=== PATIENT | female | born 1970 | race Caucasian/White ===

== ENCOUNTER 2023-06-30 15:03 | Emergency (ER) | payer BC, SELFPAY ==
[2023-06-30 15:05] VITALS: BP 171/97; PULSE 108; RESP 18; TEMP 36.6; O2SAT 99
--- NOTE | 2023-06-30 15:05 | ED.GENADUL_ITS ---
Discharge Plan Disposition Patient Disposition: Home Discharge Details Clinical Impression: Acute left flank pain, Ureterolithiasis Primary Care Provider: Effie Tubbs ED Provider: Adonay Smith Home Meds and New Rx's Prescriptions: New ondansetron 4 mg tablet,disintegrating 4 mg PO BID 5 Days Qty: 10 0RF Continued multivitamin [Daily Multi-Vitamin] Tablet 1 tab PO DAILY Discharge Instructions Additional Instructions: You are seen in the emergency department for your flank pain. You were found to have a tiny 1 to 2 mm kidney stone which was about to pass into your bladder. Please stay hydrated and return to the emergency department if you develop fevers worsening pain or cannot eat or drink as result of nausea or vomiting. A prescription for nausea medicine has been sent to your pharmacy. For your pain please take medications as follows: 1. Take acetaminophen (Tylenol), 1,000 mg (two 500 mg tabs) every 6 hours 2. Take ibuprofen (Advil), 400 mg every 6 hours. Discharge Data Discharge Date/Time-TO BE ENTERED AT DEPARTURE: 06/30/23 17:06 HPI General Date/Time Provider Initiated Documentation: 06/30/23 15:05 . HPI Narrative: MDM This is a mildly uncomfortable appearing tachycardic but normothermic 52-year-old female with left flank pain and family history of ureterolithiasis concerning for the possibility of ureterolithiasis. On limited bedside ultrasound she had no obvious hydronephrosis but given the rapidity of her pain along with her family appearance and her lack of hypotension my suspicion is high for ureterolithiasis. She does have elevated BMI but does not have a history of hypertension nor tobacco use so my suspicion is low for AAA. Not recently to suggest splenic arterial aneurysm. No diarrhea so doubt diverticulitis. No dysuria no frequency so doubt UTI. No rash to flank to suggest zoster. No pain out of proportion to suggest necrotizing soft tissue infection. Given no vomiting and no past surgical history my suspicion is low SBO. No shortness of breath nor hypoxia so doubt referred pain from pulmonary embolism. No cough to suggest pneumonia. No chest pain to suggest ACS will defer ECG. Given elevated BMI we will obtain a lipase along with comprehensive metabolic panel CBC urinalysis and dry CT abdomen pelvis. We will treat pain with 50 mg of ketorolac and nausea with 4 mg ondansetron. 351 p.m. Urinalysis showing proteinuria. Trace leukoesterase. Nitrite negative??not consistent with UTI. Microscopy showing moderate bacteriuria. No hematuria. Mild leukoesterase. Sample appears contaminated with many squames. 4 PM Comprehensive metabolic panel showing creatinine of 1.1. No prior for comparison. No acute electrolyte abnormalities. Very mild hyperglycemia but no anion gap. Normal bicarbonate??not consistent with DKA. Negative hCG. Normal reassuring lipase. 4:20 PM I reassessed the patient. She reported that her pain was nearly resolved. Her nausea was also improved. She confirmed again that she had no dysuria so I will defer treatment of her leukoesterase urine at this juncture. We will wait for CT read. 4:50 PM Patient has a tiny 1 to 2 mm ureteral lithiasis in the lower left most ureter at the UVJ. No other nephrolithiasis. Given the size of stone and lack of UTI we will proceed with empiric trial of expectant outpatient management with PCP follow-up. Based on stone size and location will certified personal finance counselor on acetaminophen and ibuprofen for analgesia. Tachycardia resolved in the ED. Chronic conditions affecting the care of the patient: Elevated BMI History obtained from an outside historian: N/A External record review: No [facility] [place] Medications: Ketorolac ondansetron Social determinants of health affecting disposition: N/A Management discussed with: [] Treatment/interventions considered: [] Response to therapies provided: [] HPI This is a 52-year-old previously healthy female arrived to the emergency department via private vehicle in the setting of left flank pain that began suddenly approximately 1 hour ago. Patient reports that her mother has ureterolithiasis but she has never had ureterolithiasis and has no known history of nephrolithiasis. She reports that she only urinated a small amount since coming to the emergency department. She denies dysuria and frequency. She was in her usual state of health earlier this morning and denies fevers cough chest pain shortness of breath and vomiting. She has not noticed any rash to her abdomen. She says that her pain is worse than childbirth. She reports that her left flank pain does not radiate. She is nauseous. She has not had any surgeries to her stomach although she does have an IUD. Exam General: Mildly uncomfortable-appearing in no acute distress speaking in complete sentences. Head: Normocephalic, atraumatic. Eye: Extraocular eye movements intact. No conjunctival injection. No scleral icterus. Ear, nose, mouth, throat: Grossly normal inspection. Normal voice, handling secretions normally. Neck: Trachea midline. Cardiovascular: Well-perfused distal extremities. Regular rate and rhythm Respiratory: Nonlabored respiration. Clear lungs bilaterally Gastrointestinal: Nondistended abdomen. Soft. Nontender. No rebound. No guarding. Back: Left CVA tenderness. No rash to back. Musculoskeletal: No edema. Moving all 4 extremities spontaneously. Skin: Normal for age and race, grossly normal temperature and turgor. No acute rash. Neurologic: Alert and appropriate, no apparent acute deficits. Psychiatric: Mood and manner are appropriate. Grooming and personal hygiene are appropriate. Related Data Home Medications Medication Instructions Recorded Confirmed multivitamin (Daily Multi-Vitamin 1 tab PO DAILY 06/30/23 06/30/23 tablet) ondansetron 4 mg disintegrating 4 mg PO BID 5 days #10 tabs 06/30/23 tablet Previous Rx's Medication Instructions Recorded ondansetron 4 mg disintegrating 4 mg PO BID 5 days #10 tabs 06/30/23 tablet Allergies Allergy/AdvReac Type Severity Reaction Status Date / Time ampicillin AdvReac Mild Other (See Unverified 06/30/23 15:45 Comment) PFSH All Active Problems (Updated 06/30/23 @ 20:20 by Adonay Smith MD) Ureterolithiasis (Acute) Acute left flank pain (Acute) Social History Smoking/Tobacco Use Status: Former Tobacco Use Smoking risk assessment performed?: Yes Substance use type: does not use Housing: house Do you feel safe at home: Yes Do you feel safe in your relationship?: Yes Additional Social history: quit smoking 26yrs ago POCUS Exam (ED) Limited Retroperitoneal(Renal)Exam DATE OF EXAM: 06/30/23 TIME OF EXAM: 15:34 PROVIDER THAT PERFORMED THE STUDY: Adonay Smith IS THIS A REPEAT EXAM DURING THIS ENCOUNTER: No REASON FOR EXAM: Flank pain/left side VISUALIZED STRUCTURES: Left kidney and Right kidney PERTINENT FINDINGS/IMPRESSION: Other impression: No obvious hydronephrosis bilaterally ; no hydronephrosis present INCIDENTAL FINDINGS: No obvious hydronephrosis bilaterally Exam complete
--- NOTE | 2023-06-30 15:15 | DI.CT_ITS ---
Exam(s) CT ABDOMEN PELVIS WO EXAM: CT ABDOMEN PELVIS WO CLINICAL HISTORY: Left flank pain. TECHNIQUE: Imaging Protocol: Axial computed tomography images with coronal and sagittal reformatted images were created and reviewed CONTRAST MATERIAL: Intravenous: none Oral: None COMPARISON: No exams were available for comparison FINDINGS: VISUALIZED LUNG BASES: No nodules nor pleural effusions evident. ABDOMEN: There is no ascites. LIVER: Liver is diffusely hypodense implying steatosis. There are no discrete focal hepatic lesions nor dilated intrahepatic ducts. GALLBLADDER/BILIARY: Gallbladder is contracted. No radiopaque calculi seen within the lumen. CBD is not dilated. PANCREAS: No evidence of pancreatic mass nor dilatation of the pancreatic duct. SPLEEN: Spleen is not enlarged. No obvious intrasplenic lesions. ADRENALS: There are no significant adrenal masses. KIDNEYS:Right kidney unremarkable. There is mild perinephric streaking on the left and mild dilatati on of the left collecting system including the left ureter. The culprit calculus is a tiny 1-2 sumaya meter calculus at the intramural aspect of the left ureterovesical junction. There are no other radi opaque calculi in the urinary bladder. No solid renal masses noted.. ABDOMINAL AORTA: Abdominal aorta is not enlarged. LYMPH NODES: There is no retroperitoneal nor paraaortic adenopathy. ABDOMINAL WALL: Fat containing umbilical midline hernia. No inguinal hernias evident. GI: There is no evidence of bowel obstruction, free air, nor abscess. PELVIS: LYMPH NODES: There is no intrapelvic nor inguinal adenopathy. GI: No evidence of appendicitis.Sigmoid diverticuli but no evidence of acute diverticulitis. URINARY BLADDER: Intramural tiny calculus left side UVJ REPRODUCTIVE: There is an IUD in the uterus. It is lying slightly lower than typical in the uterus b ut not extending into the cervical canal. There is suggestion of a possible subtle fibroid at the le zee the uterus which may be responsible for the position of the IUD. OSSEOUS: No fractures nor osseous lesions. Chronic advanced disc space narrowing at L4-5 level noted . Facet joints unremarkable. IMPRESSION: 1. The main acute finding here is a tiny 1-2 millimeter calculus in the lower most left ureter at the intramural aspect of the left UVJ. There is mild dilatation left collecting system above this level .. There are no remaining radiopaque calculi in either kidney. 2. IUD in the uterus noted. Suggestion of fundal fibroid 3. Hepatic steatosis. No discrete focal hepatic lesions. RADIATION DOSE DELIVERED: Total DLP DATA REPOSITORY: All CT scans at this facility are submitted to the National Radiology Data Registry (NRDR) Dose Index Registry (DIR) with the [employer] (A[employer]). RADIATION OPTIMIZATION: All CT scans at this facility use at least one of these dose optimization te chniques: automated exposure control; mA and/or kV adjustment per patient size (includes targeted exa ms where dose is matched to clinical indication); or iterative reconstruction.
[2023-06-30 15:31] VITALS: BP 150/86; PULSE 90; RESP 16; TEMP 37.3; O2SAT 98
[2023-06-30 15:33] VITALS: BP 150/86; PULSE 89
[2023-06-30 15:34] LABS: Bilirubin Negative (Negative); Blood Negative (Negative); Clarity Sl Cloudy (Clear); Glucose Negative (Negative); Ketones Negative (Negative); Leukocyte Esterase Trace (Negative); Nitrite Negative (Negative); Specific Gravity >= 1.030 (1.005-1.025); Urobilinogen 0.2 mg/dL (Up to 0.2); pH 5.5 (5-8)
[2023-06-30] MEDS: Normal Saline 500 ML IV (15:40)
[2023-06-30 15:41] LABS: Bacteria Moderate HPF (Negative); Crystals Few Calcium Oxalate HPF (Negative); Epithelial Cells Many HPF (Negative); RBC 0-2 HPF (0-2)
[2023-06-30 15:42] LABS: Abs Immature Grans 0.01 10^3/uL (0.0-0.06); Absolute Basophil Count 0.02 10^3/uL (0.0-0.2); Absolute Eosinophil Count 0.15 10^3/uL (0.0-0.7); Absolute Lymphocyte Count 1.76 10^3/uL (1.2-3.4); Absolute Monocyte Count 0.58 10^3/uL (0.1-0.8); Absolute Neutrophil Count 4.35 10^3/uL (1.2-6.7); Basophils % 0.3; Eosinophils % 2.2; HGB 14.9 g/dL (11.2-15.7); Immature Grans % 0.1; Lymphocytes % 25.6; MCH 28.7 pg (27.0-33.0); MCHC 33.1 % (32.0-36.0); MCV 87 fL (80-95); MPV 9.6 fL (8.0-11.0); Monocytes % 8.4; Neutrophils % 63.4; Platelet Count 289 10^3/uL (130-400); RDW 12.7 % (11.7-14.6); RDW-SD 40.4 fL; WBC 6.87 10^3/uL (4.4-10.8)
[2023-06-30 15:42] LABS: C & S Indicated? No/Sq. Contamination; Casts Negative LPF (Negative); Mucus Trace (Negative)
[2023-06-30] MEDS: Ondansetron 4 MG/2 ML VIAL IVP (15:42)
[2023-06-30] MEDS: Ketorolac 15 MG/ML VIAL IVP (15:43)
[2023-06-30 15:51] LABS: Bilirubin Negative (Negative); Blood Trace-intact (Negative); Clarity Sl Cloudy (Clear); Glucose Negative (Negative); Ketones Trace mg/dL (Negative); Leukocyte Esterase Negative (Negative); Nitrite Negative (Negative); Urobilinogen 0.2 mg/dL (Up to 0.2); pH 8.5 (5-8)
[2023-06-30 15:56] LABS: ALT 40 U/L (14-59); AST 23 U/L (15-37); Albumin 3.8 g/dL (3.4-5.0); Alkaline Phosphatase 68 U/L (46-116); Anion Gap 5.5 mmol/L (3-11); BUN 17 mg/dL (7-18); Bilirubin, Total 0.3 mg/dL (0.2-1.0); CO2 30.5 mmol/L (21.0-32.0); CREATININE 1.1 mg/dL (0.55-1.02); Calcium 9.8 mg/dL (8.5-10.1); Chloride 103 mmol/L (98-107); Estimated GFR 60.46 (mL/min/1.73m2); Glucose 138 mg/dL (74-106); HCG Qual (Serum) Negative; Lipase 76 U/L (16-77); Potassium 3.6 mmol/L (3.5-5.1); Sodium 139 mmol/L (136-145); Total Protein 8.1 g/dL (6.4-8.2)
[2023-06-30 15:58] LABS: Bacteria Few HPF (Negative); Epithelial Cells Few HPF (Negative); RBC 0-2 HPF (0-2)
[2023-06-30 15:59] LABS: C & S Indicated? Yes; Casts Negative LPF (Negative); Crystals Rare Calcium Oxalate HPF (Negative); Mucus Negative (Negative)
--- NOTE | 2023-06-30 16:49 | DI.VRAD_ITS ---
PROCEDURE INFORMATION: Exam: CT Abdomen And Pelvis Without Contrast Exam date and time: 06/30/2023 4:10 PM Age: 52 years old Clinical indication: Other: Flank pain TECHNIQUE: Imaging protocol: Computed tomography of the abdomen and pelvis without contrast. COMPARISON: No relevant prior studies available. FINDINGS: Lungs: The visualized lung bases are clear Liver: Unremarkable as visualized Gallbladder and bile ducts: The gallbladder is decompressed without gross abnormalities. Pancreas: Unremarkable as visualized Spleen: Unremarkable as visualized Adrenal glands: Normal. No mass. Kidneys and ureters: There is mild dilatation of the left ureter and mild left perinephric stranding. No other renal or ureteral calculi. No obvious renal masses. No significant hydronephrosis. Stomach and bowel: Unremarkable. No obstruction. No mucosal thickening. Appendix: No evidence of appendicitis. Intraperitoneal space: Unremarkable. No free air. No significant fluid collection. Vasculature: Unremarkable. No abdominal aortic aneurysm. Lymph nodes: No enlarged lymph nodes. Urinary bladder: 1 mm calculus within the bladder immediately adjacent to the left ureterovesical junction. No other bladder abnormalities Reproductive: No adnexal masses. Intrauterine device within the uterus. Bones/joints: Osteophytes, moderate disc space narrowing and vacuum phenomenon at L4-L5. No acute bone findings. Soft tissues: Unremarkable. IMPRESSION: 1. 1 mm calculus within the bladder immediately adjacent to the left ureterovesical junction has just likely or is about to pass. 2. No other acute findings Dictated and Authenticated by: Joao Berrios MD. Ordering:JOSEMANUEL Urias MD
[2023-06-30 17:01] VITALS: BP 141/72; PULSE 95; TEMP 37.1; O2SAT 99
== END 2023-06-30 17:06 | disposition home or self-care (01) ==
PROVIDERS: Emergency Provider Emergency Medicine; PCP Family Medicine
DX: N20.1 Calculus of ureter (principal); R11.0 Nausea; Z97.5 Presence of (intrauterine) contraceptive device; Z87.891 Personal history of nicotine dependence
CPT/HCPCS: 76775; 80053; 83690; 96361; 96374; 96375; 99284; 74176; 81003; 81015; 84703; 85025; 87086; J1885; J2405

== ENCOUNTER 2024-02-17 09:20 | Emergency (ER) | payer BC, SELFPAY ==
[2024-02-17] VITALS (39 sets, daily range): BP systolic 117–183; BP diastolic 60–98; PULSE 74–117; RESP 14–18; TEMP 36.7; O2SAT 92–100
--- NOTE | 2024-02-17 09:15 | RT.EKG_ITS ---
APPROVED REPORT Exam: Resting ECG Reason for Exam: Chest Pain Patient Location: E HR:108 bpm ECG Measurements Heart Rate 108 AXIS AZ 155 P 59 QRSd 104 QRS -25 QT 340 T 44 QTc 456 Conclusion Sinus tachycardia...rate> 99 Sinus tachycardia rate of 108 with interventricular conduction delay and a QRS of 104 ms. Left axis deviation no signs of LVH. No ST segment abnormalities. T wave flattening in lead III. No prior fo r comparison. No acute injury pattern.
--- NOTE | 2024-02-17 09:24 | W.ED.GENAD ---
Discharge Plan Disposition Patient Disposition: Home Discharge Details Clinical Impression: Chest pain, unspecified Primary Care Provider: Unknown,Unknown ED Provider: Adonay Smith Home Meds and New Rx's Prescriptions: No Action multivitamin [Daily Multi-Vitamin] Tablet 1 tab PO DAILY Discharge Instructions Additional Instructions: You are seen in the emergency department for your chest pain. Your blood work showed no sign of heart attack nor blood clot in your lungs. Please return to the emergency department if you develop worsening pain if you pass out or if you have any other concerns. Otherwise please follow-up with your primary care provider next week. Discharge Data Discharge Date/Time-TO BE ENTERED AT DEPARTURE: 02/17/24 13:18 HPI General Date/Time Provider Initiated Documentation: 02/17/24 09:23. HPI Narrative: MDM This is a quite well-appearing tachycardic but normothermic 53-year-old female with elevated BMI positive family history and chest tightness concerning for the possibility of ACS for which patient will receive troponin testing in the setting of her nonischemic ECG. No pain out of proportion to suggest necrotizing soft tissue infection. No tearing quality to suggest aortic dissection. Given tachycardia and shortness of breath PE certainly in the differential however patient is relatively low risk so we will obtain a D-dimer. No positional component to suggest pericarditis. No history of IV drug use nor fevers so my suspicion for endocarditis is low. No fevers nor cough so doubt pneumonia. Equal breath sounds and no trauma so doubt pneumothorax. No history of emesis to suggest increased risk for esophageal rupture. Soft nontender abdomen so I am not suspicious for acute cholecystitis. No dysuria no frequency so doubt UTI. Not a dialysis patient nor hypotensive so my suspicion is low for tamponade. 10:14 AM Negative troponin. Comprehensive metabolic panel with mild hyperglycemia but no anion gap normal bicarbonate??not consistent with DKA. Mildly elevated lipase not consistent with pancreatitis. CBC lacks anemia thrombocytopenia and leukocytosis. 4:08 PM Repeat troponin negative. Patient I discussed return to the ED for any worsening chest pain any syncope any chest pain that radiates to her back or any diaphoresis. Her tachycardia resolved without intervention. Her D-dimer was negative. She understood her return indications and was discharged with an empiric trial of expectant outpatient management. Chronic conditions affecting the care of the patient: Elevated BMI History obtained from an outside historian: N/A External record review: No [facility] [place] Diagnostic interpretations performed by me: Per my independent interpretation chest x-ray shows: Per my independent interpretation EKG shows: Sinus tachycardia rate of 108 with interventricular conduction delay and a QRS of 104 ms. Left axis deviation no signs of LVH. No ST segment abnormalities. T wave flattening in lead III. No prior for comparison. No acute injury pattern. ]Medications: N/A Social determinants of health affecting disposition: N/A Management discussed with: N/A Treatment/interventions considered: N/A Response to therapies provided: N/A HPI This is a 53-year-old female with an elevated BMI but no history of hypertension hyperlipidemia nor diabetes arrived to emergency department via private vehicle in setting of chest tightness. Patient noticed that Sunday with her left arm was tingling. She had a near syncopal episode this morning and felt tightness in her chest associate with some shortness of breath. She reports family history significant for myocardial infarction in her father when he was approximately 8 65-70. Patient has no prior history of similar symptoms. She has never had a PE nor DVT but she does feel some shortness of breath. Her pain is not positional nor pleuritic. She rarely drinks ethanol and denies routine tobacco and illicits. No recent falls. No fevers. Exam General: Well-appearing in no acute distress speaking in complete sentences. Head: Normocephalic, atraumatic. Eye: Extraocular eye movements intact. No conjunctival injection. No scleral icterus. Ear, nose, mouth, throat: Grossly normal inspection. Normal voice, handling secretions normally. Neck: Trachea midline. Cardiovascular: Well-perfused distal extremities. Regular rate and rhythm Respiratory: Nonlabored respiration. Clear lungs bilaterally. Gastrointestinal: Nondistended abdomen. soft nontender Musculoskeletal: No edema. Moving all 4 extremities spontaneously. Skin: Normal for age and race, grossly normal temperature and turgor. No acute rash. Neurologic: Alert and appropriate, no apparent acute deficits. Psychiatric: Mood and manner are appropriate. Grooming and personal hygiene are appropriate. Related Data Home Medications Medication Instructions Recorded Confirmed multivitamin (Daily Multi-Vitamin 1 tab PO DAILY 06/30/23 02/17/24 tablet) Allergies Allergy/AdvReac Type Severity Reaction Status Date / Time ampicillin AdvReac Mild cold sores Unverified 02/17/24 09:34 General STEFAN: 3 Medical Decision Making Quality:SDOH Health Related Social Needs: No Data to Display PFSH All Active Problems (Updated 02/17/24 @ 12:33 by Adonay Smith MD) Chest pain, unspecified (Acute) Social History Smoking/Tobacco Use Status: Former Tobacco Use Smoking risk assessment performed?: Yes Substance use type: does not use Housing: house Do you feel safe at home: Yes Do you feel safe in your relationship?: Yes Additional Social history: quit smoking 26yrs ago
[2024-02-17 09:49] LABS: Abs Immature Grans 0.03 10^3/uL (0.0-0.06); Absolute Basophil Count 0.01 10^3/uL (0.0-0.2); Absolute Eosinophil Count 0.26 10^3/uL (0.0-0.7); Absolute Monocyte Count 0.34 10^3/uL (0.1-0.8); Absolute Neutrophil Count 3.77 10^3/uL (1.2-6.7); Basophils % 0.2 %; Eosinophils % 4.3 %; HCT 45.7 % (36.0-46.0); HGB 15.3 g/dL (11.2-15.7); Immature Grans % 0.5 %; Lymphocytes % 27.8 %; MCHC 33.5 % (32.0-36.0); MCV 87 fL (80-95); MPV 9.5 fL (8.0-11.0); Monocytes % 5.6 %; Neutrophils % 61.6 %; Platelet Count 245 10^3/uL (130-400); RBC 5.27 10^6/uL (3.93-5.22); RDW 12.7 % (11.7-14.6); RDW-SD 40.1 fL; WBC 6.11 10^3/uL (4.4-10.8)
--- NOTE | 2024-02-17 10:04 | DI.RAD_ITS ---
Exam(s) XR CHEST 2V PA LATERAL EXAM: XR CHEST 2V PA LATERAL CLINICAL HISTORY: Chest pain TECHNIQUE: 2D digital imaging was performed of the chest. Two images were obtained. PA and lateral views were obtained. COMPARISON: No exams were available for comparison FINDINGS: MEDIASTINUM: Normal. HEART: Normal. PULMONARY VASCULATURE: Normal. LUNGS: Clear. PLEURAL SPACE: No pleural effusion or pneumothorax. BONE:Within normal limits for the patient's age. OTHER FINDINGS:Normal. IMPRESSION: No acute pulmonary findings. DATA REPOSITORY: RADIATION DOSE DELIVERED:
[2024-02-17 10:07] LABS: ALT 42 U/L (14-59); AST 21 U/L (15-37); Albumin 3.6 g/dL (3.4-5.0); Alkaline Phosphatase 73 U/L (46-116); BUN 15 mg/dL (7-18); Bilirubin, Total 0.38 mg/dL (0.2-1.0); CREATININE 0.9 mg/dL (0.55-1.02); Calcium 8.9 mg/dL (8.5-10.1); Chloride 104 mmol/L (98-107); Estimated GFR 76.44 (mL/min/1.73m2); Glucose 154 mg/dL (74-106); Lipase 80 U/L (16-77); Potassium 3.9 mmol/L (3.5-5.1); Sodium 141 mmol/L (136-145); Total Protein 7.7 g/dL (6.4-8.2); Troponin I < 50 ng/L (< or =60)
[2024-02-17 10:28] LABS: D-Dimer 335 ng/mlFEU (<500)
--- NOTE | 2024-02-17 11:14 | DI.VRAD_ITS ---
PROCEDURE INFORMATION: Exam: XR Chest Exam date and time: 02/17/2024 10:03 AM Age: 53 years old Clinical indication: Other: Chest pain TECHNIQUE: Imaging protocol: Radiologic exam of the chest. Views: 2 views. COMPARISON: CT ABDOMEN PELVIS WO 06/30/2023 4:10 PM FINDINGS: Lungs: Unremarkable. No consolidation. Pleural spaces: Unremarkable. No pleural effusion. No pneumothorax. Heart/Mediastinum: Unremarkable. No cardiomegaly. Bones/joints: Unremarkable. IMPRESSION: No acute findings. Dictated and Authenticated by: Xi Rivera MD. Ordering:JOSEMANUEL Urias MD
[2024-02-17 13:05] LABS: Troponin I < 50 ng/L (< or =60)
== END 2024-02-17 13:18 | disposition home or self-care (01) ==
PROVIDERS: Emergency Provider Emergency Medicine
DX: R07.9 Chest pain, unspecified (principal); R55 Syncope and collapse; R06.02 Shortness of breath
CPT/HCPCS: 36415; 80053; 83690; 93005; 99285; 71046; 84484; 85025; 85379; 93010; 99284